=== PATIENT | male | born 2000 | race Caucasian/White ===

== ENCOUNTER → 2024-11-13 | Outpatient (CLI) | payer OTHER, SELFPAY ==
--- NOTE | 2024-11-13 07:26 | US_ITS ---
PROCEDURE: ABDOMEN LIMITED 11/13/2024 REASON FOR EXAM: LLQ ABDOMINAL WALL MASS TECHNIQUE: ABDOMEN LIMITED COMPARISON: No FINDINGS: In the left lower abdomen, there is a hypervascular region measuring approximately 2 x 5 x 6 cm. Dilated vessels course throughout the lesion, which may represent edematous normal tissue surrounding the abnormal vasculature. 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 Recommend CTA of the abdomen and pelvis to further assess. Reading Location: [facility]
--- OUTSIDE RECORDS SUMMARY | 2024-11-13 07:29 | XMS RPT_ITS | CCD ---
Author Organization [facility] ion Partnership [facility] Care Team Providers Care Director [employer] Name Role Phone Shannon Strauss Referring Unavailable Shannon Strauss Attending Unavailable Shannon Strauss Primary Care Unavailable Problems Problem Classification Problem Date Documented Da te Episodic/Chronic Other gastrointestinal disorders (1 source) Left lower quadrant abdominal swelling, mass and lump; Translations: [Left lower quadrant abdominal swelling, mass and lump] Onset: 11-12-2024 Episodic Results Test Name Value Interpretation Reference Range Facil ity COMPREHENSIVE METABOLIC PANE Oliver 10-31-2024 Albumin [Mass/Vol] 5.2 g/dL High 3.6-5.1 [facility] Comment on above: Performed By: #### 7 600, [id number] #### [facility] [address], [address] [place] [address] Director Of Operations Support: Chay Carranza MD Albumin/Globulin [Mass ratio] 2.3 {ratio} Normal 1.0-2.5 [facility] Comment on above: Performed By: #### 7 600, [id number] #### [facility] [place] [address] Director Of Operations Support: Chay Carranza MD ALP [Catalytic activity/Vol] 38 U/L Normal 36-130 [facility] Comment on above: Performed By: #### 7 600, [id number] #### [facility] [place] [address] Director Of Operations Support: Chay Carranza MD ALT [Catalytic activity/Vol] 10 U/L Normal 9-46 [facility] Comment on above: Performed By: #### 7 600, [id number] #### [facility] [place] [address] Director Of Operations Support: Chay Carranza MD AST [Catalytic activity/Vol] 12 U/L Normal 10-40 [facility] Comment on above: Performed By: #### 7 600, [id number] #### [facility] [place] [address] Director Of Operations Support: Chay Carranza MD Bilirubin [Mass/Vol] 1.1 mg/dL Normal 0.2-1.2 [facility] Comment on above: Performed By: #### 7 600, 19674 #### [facility] [address], [address] [place] [address] Director Of Operations Support: Chay Carranza MD BUN/CREATININE RATIO SEE NOTE: Normal 6-22 [facility] Comment on above: Result Comment: Not Reported: BUN and Creatinine are within reference range. Performed By: #### 7 600, [id number] #### [facility] [place] [address] Director Of Operations Support: Chay Carranza MD Calcium [Mass/Vol] 9.8 mg/dL Normal 8.6-10.3 [facility] Comment on above: Performed By: #### 7 600, [id number] #### [facility] [place] [address] Director Of Operations Support: Chay Carranza MD Chloride [Moles/Vol] 105 mmol/L Normal 98-110 [facility] Comment on above: Performed By: #### 7 600, 70769 #### [facility] [place] [address] Director Of Operations Support: Chay Carranza MD CO2 [Moles/Vol] 26 mmol/L Normal 20-32 [facility] Comment on above: Performed By: #### 7 600, 90849 #### [facility] [place] [address] Director Of Operations Support: Chay Carranza MD Creatinine [Mass/Vol] 0.98 mg/dL Normal 0.60-1.24 [facility] Comment on above: Performed By: #### 7 600, 47241 #### [facility] of [place] [address] Director Of Operations Support: Chay Carranza MD GFR/1.73 sq M.predicted among non-blacks MDRD (S/P/Bld) [Vol rate/Area] 109 mL/min/{1.73_m2} Normal > OR = 60 [facility] Comment on above: Performed By: #### 7 600, 25242 #### [facility] of [address], [address] [place] [address] Director Of Operations Support: Chay Carranza MD Globulin (S) [Mass/Vol] 2.3 g/dL Normal 1.9-3.7 [facility] Comment on above: Performed By: #### 7 600, 59968 #### [facility] of [place] [address] Director Of Operations Support: Chay Carranza MD Glucose [Mass/Vol] 99 mg/dL Normal 65-99 [facility] Comment on above: Result Comment: Fasting reference interval Performed By: #### 7 600, 13496 #### [facility] of [place] [address] Director Of Operations Support: Chay Carranza MD Potassium [Moles/Vol] 3.7 mmol/L Normal 3.5-5.3 [facility] Comment on above: Performed By: #### 7 600, 09631 #### [facility] [place] [address] Director Of Operations Support: Chay Carranza MD Protein [Mass/Vol] 7.5 g/dL Normal 6.1-8.1 [facility] Comment on above: Performed By: #### 7 600, 10571 #### [facility] of [place] [address] Director Of Operations Support: Chay Carranza MD Sodium [Moles/Vol] 140 mmol/L Normal 135-146 [facility] Comment on above: Performed By: #### 7 600, 41730 #### [facility] of [place] [id number] Director Of Operations Support: Chay Carranza MD Urea nitrogen [Mass/Vol] 14 mg/dL Normal 7-25 [facility] Comment on above: Performed By: #### 7 600, 69026 #### [facility] [address], [address] [place] [address] Director Of Operations Support: Chay Carranza MD LIPID PANEL, [facility] [place] 07- 0-2024 Cholesterol [Mass/Vol] 170 mg/dL Normal <200 [facility] Comment on above: Order Comment: FASTI NG:YES FASTING: YES Performed By: #### 7 600, 05974 #### [facility] [address], [address] [place] [address] Director Of Operations Support: Chay Carranza MD Cholesterol in HDL [Mass/Vol] 49 mg/dL Normal > OR = 40 [facility] Comment on above: Order Comment: FASTI NG:YES FASTING: YES Performed By: #### 7 600, 17762 #### [facility] [address], [address] [place] [address] Director Of Operations Support: Chay Carranza MD Cholesterol in LDL [Mass/Vol] 100 mg/dL High [facility] Comment on above: Order Comment: FASTI NG:YES FASTING: YES Result Comment: Refe rence range: <100 Desirable range <100 mg/dL for primary prevention; <70 mg/dL for patients with CHD or diabetic patients with > or = 2 CHD risk factors. LDL-C is now calculated using the Mackenzie calculation, which is a validated novel method providing better accuracy than the Friedewald equation in the estimation of LDL-C. Agus LINDO et al. CONNER. 2013;310(19): 6141-9412 (http://education.[employer]/faq/QQO581) Performed By: #### 7 600, 25512 #### [facility] [address], [address] [place] [address] Director Of Operations Support: Chay Carranza MD Cholesterol.total/Ch olesterol in HDL [Mass ratio] 3.5 {ratio} Normal <5.0 [facility] Comment on above: Order Comment: FASTI NG:YES FASTING: YES Performed By: #### 7 600, 40161 #### [facility] [address], [address] [place] [address] Director Of Operations Support: Chay Carranza MD NON HDL CHOLESTEROL 121 mg/dL (calc) Normal <130 [facility] Comment on above: Order Comment: FASTI NG:YES FASTING: YES Result Comment: For patients with diabetes plus 1 major ASCVD risk factor, treating to a non-HDL-C goal of <100 mg/dL (LDL-C of <70 mg/dL) is considered a therapeutic option. Performed By: #### 7 600, 95179 #### [facility] [address], [address] [place] [address] Director Of Operations Support: Chay Carranza MD Triglyceride [Mass/Vol] 110 mg/dL Normal <150 [facility] Comment on above: Order Comment: FASTI NG:YES FASTING: YES Performed By: #### 7 600, 93262 #### [facility] [address], [address] [place] [address] Director Of Operations Support: Chay Carranza MD Encounters Encounter Date Encounter Type Care Provider Facility Start: 11-13-2024 [facility] Facility:[facility] Payers Date Payer Category Payer Private Health Insurance [id number] 2024 Self-pay Unknown [id number] Summary Purpose Family History No Family History Records FoundNo Family History Records Found Advance Directives No Advanced Directives Records FoundNo Advanced Directives Records Found Additional Source Comments (unrecognized sect ion and content) No Status Records FoundNo Status Records Found INFORMATION SOURCE (unrecogn ized section and content) DATE CREATED AUTHOR 11/05/2024 [facility] DATE CREATED AUTHOR AUTHOR'S JUMAIZ ATSARIAH 11/13/2024 [facility] FOR RECORDS PERTAINING TO PATIENTS WHO ARE OR HAVE BEEN ENROLLED IN A CHEMICAL DEPENDENCY/SUBSTANCEABUSE PROGRAM, SOME INFORMATION MAY BE OMITTED. This clinical summary was aggregated from multiple sources. Caution should be exercised in using it in the provision of clinical care. This summary normalizes information from multiple sources, and as a consequence, information in this document may materially change the coding, format and clinical context of patient data. In addition, data may be omitted in some cases. CLINICAL DECISIONS SHOULD BE BASED ON THE PRIMARY CLINICAL RECORDS. [employer] [facility]. provides no warranty or guarantee of the accuracy or completeness of information in this document.
== END | disposition home or self-care (01) ==
PROVIDERS: PCP Family Medicine; Referring Provider Family Medicine; Visit Provider Family Medicine
DX: R19.04 Left lower quadrant abdominal swelling, mass and lump (principal)
CPT/HCPCS: 76705

== ENCOUNTER → 2024-11-15 | Outpatient (CLI) | payer OTHER, SELFPAY ==
--- NOTE | 2024-11-15 13:46 | CT_ITS ---
PROCEDURE: CTA ABD/PELVIS W/WO CONTRAST 11/15/2024 REASON FOR EXAM: LLQ ABDOMINAL MASS TECHNIQUE: CTA ABD/PELVIS W/WO CONTRAST Multiplanar Sagittal and Coronal images were obtained. 3D and MIP post processing was performed. CONTRAST: Isovue 370 VOLUME: 100 mL One or more dose reduction techniques were used (e.g., Automated exposure control, adjustment of the mA and/or kV according to patient size, use of iterative reconstruction technique). RADIATION DOSE SUMMARY: DLP: 468.89 mGycm COMPARISON: Abdominal ultrasound 11/13/2024. FINDINGS: There is a vascular lesion in the anterior left lower abdominal wall subcutaneous tissues which has mixed arterial and venous components. Nodular nidus component measures 5 x 4.3 x 1.9 cm (CC, TV, AP). 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 Arterial supply is predominantly from an anterior branch from the proximal left common femoral artery (S2 image 148) which extends superiorly to the main vascular nidus. Venous drainage is primarily via the left common femoral vein (S2 image 160). No additional vascular lesion is seen in the abdomen/pelvis. Abdominal aorta and its major branch vessels are normal in course and caliber. No atherosclerotic disease. No aneurysm or dissection. Lung bases are clear. The liver, gallbladder, spleen, pancreas, adrenal glands, kidneys, bladder and prostate are unremarkable. Gastrointestinal tract is unremarkable with no evidence of obstruction or inflammatory process. Normal appendix. No lymphadenopathy, ascites or free air. Visualized osseous structures are intact and within normal limits. 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 Reading Location: [id number]
== END | disposition home or self-care (01) ==
LOC: CT 13:43
PROVIDERS: PCP Family Medicine; Referring Provider Family Medicine; Visit Provider Family Medicine
DX: R19.04 Left lower quadrant abdominal swelling, mass and lump (principal); I99.9 Unspecified disorder of circulatory system
CPT/HCPCS: 74174; Q9967